=== PATIENT | female | born 1990 | race Caucasian/White ===

== ENCOUNTER 2017-07-25 08:55 | Emergency (ER) | payer BC, OTHER ==
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
== END 2017-07-25 10:55 | disposition home or self-care (01) ==
LOC: FB.ED 08:55
DX: S39.012A Strain of muscle, fascia and tendon of lower back, initial encounter (principal); V59.9XXA Occupant (driver) (passenger) of pick-up truck or van injured in unspecified traffic accident, initial encounter; Y92.410 Unspecified street and highway as the place of occurrence of the external cause
CPT/HCPCS: 72100; 81001; 81025; 99284